=== PATIENT | male | born 1985 | race Caucasian/White ===

== ENCOUNTER 2020-06-13 06:48 | Outpatient (NON) | payer MEDICARE, SELFPAY ==
[2020-06-13 19:05] LABS: SARS-CoV-2 RNA PCR Negative
== END 2020-06-13 06:49 ==
PROVIDERS: Visit Provider Family Medicine
DX: Z20.828 Contact with and (suspected) exposure to other viral communicable diseases (principal)
CPT/HCPCS: 87635; C9803; U0003

== ENCOUNTER 2020-06-19 10:23 | Outpatient (CLI) | payer MEDICARE, SELFPAY ==
--- NOTE | ~2020-06-19 | XR_ITS ---
XR chest 2V DATE: 06/19/2020 10:55 INDICATION: Cough for 2 weeks TECHNIQUE: PA and lateral chest COMPARISON: None FINDINGS: Patchy infiltrate and/or atelectasis is suggested in both lower lobes. Borderline or increased heart size. No hilar or mediastinal enlargement. No pleural effusion or pulmo nary vascular congestion or pneumothorax is evident. No significant skeletal abnormality is noted. IMPRESSION: Mild infiltrate or atelectasis in the lower lobes Reviewed, dictated and finalized at location A.
== END 2020-06-19 10:24 | disposition home or self-care (01) ==
PROVIDERS: PCP Nurse Practitioner; Visit Provider Nurse Practitioner
DX: R05 Cough (principal); R91.8 Other nonspecific abnormal finding of lung field
CPT/HCPCS: 71046

== ENCOUNTER 2020-10-05 08:52 | Outpatient (CLI) | payer MEDICARE, SELFPAY ==
--- NOTE | 2020-10-05 16:39 | WPDPFTINT ---
PFT Interpretation This is a pulmonary function test with spirometry, plethysmography and diffusing capacity. The test was performed and results interpreted in accordance with the 2019 and 2005 ATS/ERS Task Force guidelines respectively using the Prudencio/Polsmitha reference equations. Of note the patient had difficulty with all of this testing. He was very short of breath and kept panting throughout the testing. Findings: Spirometry: There is decreased maximal expiratory airflow at all lung volumes with a flattened expiratory curve. The inspiratory flow tracing is normal. The FVC is 2.13 L, 40% predicted. The FEV1 is 1.48 L, 36% predicted. The FEV1: FVC ratio is 69%. Plethysmography: The total lung capacity is 7.32 L, 101% predicted. The functional residual capacity is 4.55, 178% predicted. The residual volume is 3.11, 152% predicted. Diffusing capacity the absolute diffusion capacity is 20.0, 49% predicted. The diffusing capacity corrected for alveolar volume is 5.83, 132% predicted. Impression: The patient had difficulty performing all maneuvers on this pulmonary function test. He was short of breath and panting throughout the testing. Caution should be used in making a diagnosis or initiating treatment based on these results. There is a flattening of the expiratory flow tracing that may be consistent with an inadequate expiratory phase or a variable intrathoracic obstruction. A variable intrathoracic obstruction can be seen with tracheal malacia, bronchogenic cyst, or a malignant tracheal lesion. There is an increase in the functional residual capacity and residual volume with a normal total lung capacity. This is an abnormal but nonspecific lung volume pattern. The absolute diffusing capacity is moderately decreased but normalizes when corrected for alveolar volume. There are no prior studies for comparison
== END 2020-10-05 08:53 | disposition home or self-care (01) ==
PROVIDERS: PCP Nurse Practitioner; Visit Provider Nurse Practitioner
DX: R06.02 Shortness of breath (principal); R05 Cough; R94.2 Abnormal results of pulmonary function studies
CPT/HCPCS: 94375; 94726; 94729

== ENCOUNTER 2020-10-22 14:56 | Outpatient (CLI) | payer MEDICARE, SELFPAY ==
--- NOTE | ~2020-10-22 | CT_ITS ---
EXAMINATION: CT chest abdomen w con DATE: 10/22/2020 15:51 INDICATION: Shortness of breath. Abnormal results of pulmonary function studies. TECHNIQUE: Computed tomography (CT) of the chest and abdomen was performed with 100 mL Omnipaque 350 intravenous contrast. Automated exposure control and iterative reconstruction technique were employed . The dose-length product was 1779.74 mGy-cm. COMPARISON: Chest 2 views 06/19/2020 FINDINGS: CHEST CT: The lungs demonstrate mild atelectasis. A calcified right lung nodule is consistent with ol d granulomatous disease. No pleural effusion. The heart size is normal. No pericardial effusion. Medi astinal lipomatosis is noted. There is a 3.0 x 1.8 cm hyperdense mass in right supraclavicular region . There is mild thoracic spondylosis. ABDOMEN CT: The liver, gallbladder, spleen, pancreas, adrenal glands, and kidneys are normal. There are no dilate d loops of bowel. 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 There a re no pathologically enlarged lymph nodes. There is no free intraperitoneal fluid. There is mild lumb ar spondylosis. IMPRESSION: 1. 3.0 x 1.8 cm hyperdense mass in right supraclavicular region. The differential diagnosis includes josé luis metastatic disease, Castleman disease, schwannoma, and venous malformation. Ultrasound-guided c ore needle biopsy is recommended. Reviewed, dictated and finalized at location A. 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 3.0 x 1.8 cm hyperdense mass in right supraclavicular region. The differenti al diagnosis includes josé luis metastatic disease, Castleman disease, schwannoma, and venous malformation. Ultrasound-guided core needle biopsy is recommended.
== END 2020-10-22 14:57 | disposition home or self-care (01) ==
PROVIDERS: PCP Nurse Practitioner; Visit Provider Nurse Practitioner
DX: R06.02 Shortness of breath (principal); R94.2 Abnormal results of pulmonary function studies
CPT/HCPCS: 71260; 74160; Q9967

== ENCOUNTER 2020-10-29 10:53 | Outpatient (CLI) | payer MEDICARE, SELFPAY | END 2020-10-29 10:54 | disposition home or self-care (01) | LOC: ANHCOVIDVC 10:54 | PROVIDERS: PCP Nurse Practitioner | DX: Z23 Encounter for immunization (principal) | CPT/HCPCS: 0001A; 91300 ==

== ENCOUNTER 2020-11-09 11:15 | Outpatient (CLI) | payer MEDICARE, SELFPAY ==
--- NOTE | ~2020-11-09 | CT_ITS ---
EXAMINATION:CT diagnostic chest w con DATE: 11/09/2020 14:24 INDICATION: Right supraclavicular mass. TECHNIQUE: Computed tomography (CT) of the chest was performed with 75 mL Omnipaque 350 intravenous c ontrast. Automated exposure control and iterative reconstruction technique were employed. The dose-le ngth product (DLP) was 738.17 mGy-cm. COMPARISON: Chest CT 10/22/2020 FINDINGS: The lungs demonstrate mild atelectasis. No pleural effusion. The heart size is normal. No p ericardial effusion. There is a varix in the right supraclavicular region. There are no pathologicall y enlarged lymph nodes. There is mild thoracic spondylosis. IMPRESSION: 1. Normal variant varix in the right subclavicular region correlating with the previously described m ass. The biopsy was canceled. Reviewed, dictated and finalized at location A. IMPRESSION: 1. Normal variant varix in the right subclavicular region correlating with the previously described mass. The biopsy was canceled.
--- NOTE | ~2020-11-09 | US_ITS ---
EXAMINATION: US soft tissue head and neck DATE: 11/09/2020 13:44 INDICATION: Right supraclavicular mass. TECHNIQUE: Multiple grayscale and Doppler ultrasound images of the right neck were obtained. COMPARISON: CT 10/22/2020 FINDINGS: There is no abnormal mass identified in the right supraclavicular region. IMPRESSION: 1. No abnormal mass identified in the right supraclavicular region. The scheduled biopsy will be swit ched to CT guidance. Reviewed, dictated and finalized at location A. IMPRESSION: 1. No abnormal mass identified in the right supraclavicular region. The schedul ed biopsy will be switched to CT guidance.
== END 2020-11-09 11:16 | disposition home or self-care (01) ==
PROVIDERS: PCP Nurse Practitioner; Visit Provider Nurse Practitioner
DX: R22.2 Localized swelling, mass and lump, trunk (principal)
CPT/HCPCS: 71260; 76536; Q9967

== ENCOUNTER 2020-11-19 10:56 | Outpatient (CLI) | payer MEDICARE, SELFPAY | END 2020-11-19 10:57 | disposition home or self-care (01) | LOC: ANHCOVIDVC 10:56 | PROVIDERS: PCP Nurse Practitioner | DX: Z23 Encounter for immunization (principal) | CPT/HCPCS: 0002A; 91300 ==

== ENCOUNTER → 2020-12-14 01:02 | Outpatient (CLI) | payer MEDICARE, SELFPAY ==
[2020-12-14 21:02] LABS: SARS-CoV-2 RNA PCR Negative
== END ==
PROVIDERS: PCP Nurse Practitioner; Visit Provider Internal Medicine Critical Care Medicine
DX: Z01.812 Encounter for preprocedural laboratory examination (principal); Z20.822 Contact with and (suspected) exposure to COVID-19
CPT/HCPCS: C9803; U0003; U0005

== ENCOUNTER 2020-12-17 09:05 | Outpatient (CLI) | payer MEDICARE, SELFPAY ==
--- NOTE | 2020-12-31 13:07 | WPDSLEEPSTUD ---
Sleep Study Date of Study: 12/17/20 Ordering Provider: Yakov Shankar MD Interpreting Physician: Courtney Singh MD Sleep Study Type: Polysomnogram Height: 1.82 m Weight: 172.365 kg Body Mass Index: 52.2 Neck Circumference (inches): 20 Coleridge: 11 Reason for Sleep Study Hypersomnia Sleep History Neymar Howard is a 35 year old man with a history of obstructive sleep apnea in the past with difficulty tolerating CPAP, so he quit using it. He now presents feeling very fatigued and exhausted, is willing to re- evaluate his sleep and wants to try PAP therapy. His sleep problems have been present for years. He has difficulty falling asleep, he wakes up during the night and he has a difficult time waking in the morning. He is excessively sleepy during the day. Family history is unknown as he is adopted. He does not awaken from sleep feeling short of breath. He does not awaken at night with heartburn, belching or coughing. He constantly snores. He does not snore loudly enough that others complain. He occasionally has trouble sleeping with a cold. He does not wake up gasping for breath during the night. He does not have breathing problems at night observed by others. He rarely sweats excessively night. He does not notice his heart pounding or beating irregularly at night. He constantly falls asleep during the day although not involuntarily or while driving. He does not have loss of muscle tone was strong emotion. He occasionally has daytime difficulties due to excessive sleepiness. He does not feel paralyzed on waking or falling asleep. He rarely has vivid dreamlike scenes upon awakening or falling asleep. He does not feel afraid to go to sleep. He occasionally has nightmares. He occasionally remembers his dreams. On occasion he has racing thoughts. He constantly feels sad, depressed and anxious. He occasionally has muscular tension. He frequently notices parts of his body jerking. He rarely kicks at night. He seldom has crawling or aching feelings in his legs at night. He constantly has leg pain during the night. He does not have morning jaw pain. Occasionally grind his teeth during sleep. He constantly is bothered by pain during the day, awakened by pain at night, wakes up feeling stiff in the morning with sore or achy muscles and pain in the neck and spine. He rarely has morning headaches. He always has excessive daytime sleepiness Normal bedtime 9:00 p.m. taking Trazodone at night to initiate sleep.. He usually takes just minutes to fall to sleep but sometimes it takes longer. He may wake 2 or 3 times at night. Sometimes he is able to return to sleep quickly and sometimes it takes up to 30 minutes. While awake he goes to the bathroom and get a drink of water. His wake time depends on what his schedule is. His weekend schedule is the same. He estimates getting between 4 and 6 hours of sleep at night. He takes naps in the afternoon or evening. A short nap is not refreshing. He is usually drowsy in the morning. He feels better in the morning compared other times of day. Habits: Caffeine 1-2 per day. Alcohol 1 per day. [facility] Past Medical History Medical History (Updated 12/31/20 @ 13:26 by Courtney Singh MD) ADHD (attention deficit hyperactivity disorder) Anxiety Asperger's disorder Depression Hyperlipidemia Obstructive sleep apnea Seasonal allergies Sleep apnea Family History Family History Mother Family history of obesity Family history of diabetes mellitus in first degree relative Other Family history of cardiovascular disease Social History Social History (Updated 12/31/20 @ 13:21 by Courtney Singh MD) Social History: His sleep questionnaire November 2020 indicates that he is adopted. Smoking status: Never smoker Alcohol intake: current Substance use: never Substance use type: does not use Medications Home Medica
[2020-12-31 13:35] VITALS: BMI 52.2
== END 2020-12-17 09:06 | disposition home or self-care (01) ==
LOC: ANHCSM 09:06
PROVIDERS: PCP Nurse Practitioner; Visit Provider Internal Medicine Pulmonary Disease
DX: G47.33 Obstructive sleep apnea (adult) (pediatric) (principal); G47.10 Hypersomnia, unspecified; E66.9 Obesity, unspecified; Z68.43 Body mass index [BMI] 50.0-59.9, adult
CPT/HCPCS: 95810

== ENCOUNTER 2020-12-31 09:16 | Outpatient (CLI) | payer MEDICARE, SELFPAY | END 2020-12-31 09:17 | disposition home or self-care (01) | PROVIDERS: PCP Nurse Practitioner; Visit Provider Nurse Practitioner | DX: E53.8 Deficiency of other specified B group vitamins (principal) | CPT/HCPCS: 36415; 82607 ==

== ENCOUNTER 2021-11-11 07:48 | Outpatient (CLI) | payer MEDICARE, SELFPAY ==
[2021-11-11 08:27] LABS: Basophils Absolute Auto 0.1 K/mm3 (0.0-0.1); Basophils Percent Auto 0.9 % (0.2-1.2); Eosinophils Absolute Auto 0.3 K/mm3 (0-0.3); Eosinophils Percent Auto 3.5 % (0-4.4); Hematocrit 40.2 % (42.0-52.0); Hemoglobin 12.2 g/dL (14.0-18.0); Immature Granulocyte Absolute 0.08 K/mm3 (0.00-0.031); Immature Granulocyte Percent A 1.1 % (0-0.5); Lymphocytes Absolute Auto 1.28 K/mm3 (0.9-3.2); Mean Corpuscular HGB Conc 30.3 g/dl (32-36); Mean Corpuscular Hemoglobin 24.9 pg (26-34); Monocytes Absolute Auto 0.7 K/mm3 (0.1-0.6); Monocytes Percent Auto 8.9 % (2.6-8.5); Neutrophils Absolute Auto 5.2 K/mm3 (1.3-6.7); Neutrophils Percent Auto 68.6 % (45.5-73.1); Platelet Count Result 270 k/mm3 (150-375); Red Cell Distribution Width 15.4 % (11.5-14.5); White Blood Count 7.5 K/mm3 (4.5-10.0)
[2021-11-11 08:38] LABS: Alanine Aminotransferase 28 U/L (4-50); Albumin Level 3.9 g/dL (3.5-5.1); Alkaline Phosphatase 87 U/L (38-126); Anion Gap 4 mmol/L (8-16); Aspartate Amino Transferase 27 U/L (17-59); Bilirubin,Total 0.2 mg/dL (0.2-1.3); Blood Urea Nitrogen 13 mg/dL (9-20); Calcium 8.8 mg/dL (8.4-10.2); Carbon Dioxide 31 mmol/L (22-30); Chloride 105 mmol/L (98-107); Cholesterol 149 mg/dL (0-200); Estimated Glomerular Filt Rate > 60; Glucose 85 mg/dL (65-110); HDL Direct 26 mg/dL; Sodium 140 mmol/L (137-145); Triglycerides 197 mg/dL (<150)
[2021-11-11 08:49] LABS: LDL Cholesterol Direct 85 mg/dL
[2021-11-11 09:01] LABS: Vitamin D 25 Hydroxy 17.3 ng/mL
[2021-11-11 10:02] LABS: Hemoglobin A1C 5.2 % (<5.7)
[2021-11-11 17:38] LABS: Iron 49 ug/dL (49-181)
== END 2021-11-11 07:49 | disposition home or self-care (01) ==
PROVIDERS: PCP Nurse Practitioner; Visit Provider Nurse Practitioner
DX: R73.9 Hyperglycemia, unspecified (principal); E53.8 Deficiency of other specified B group vitamins; E78.5 Hyperlipidemia, unspecified; E03.9 Hypothyroidism, unspecified; E55.9 Vitamin D deficiency, unspecified; R53.83 Other fatigue; D64.9 Anemia, unspecified
CPT/HCPCS: 36415; 80053; 80061; 82306; 82607; 82728; 83036; 83540; 84443; 85025

== ENCOUNTER 2022-01-28 10:16 | Outpatient (CLI) | payer MEDICARE, SELFPAY ==
--- NOTE | ~2022-01-28 | XR_ITS ---
XR ribs BI 3V w CXR 2V DATE: 01/28/2022 10:54 INDICATION: Covid chest pain TECHNIQUE: PA and lateral chest. Bilateral rib views. COMPARISON: 11/09/2020 CT chest 06/19/2020 chest 2 views FINDINGS: Heart size is within normal range. No pulmonary infiltrate or consolidation, pulmonary vas cular congestion or pleural effusion or pneumothorax is detected. No rib fracture or bone destructio n is detected. IMPRESSION: No significant abnormality Reviewed, dictated and finalized at location A. IMPRESSION: No significant abnormality
== END 2022-01-28 10:17 | disposition home or self-care (01) ==
LOC: ANHIMG 10:28
PROVIDERS: PCP Nurse Practitioner; Visit Provider Nurse Practitioner Family
DX: R07.89 Other chest pain (principal)
CPT/HCPCS: 71046; 71110

== ENCOUNTER 2022-02-07 09:57 | Outpatient (CLI) | payer MEDICARE, SELFPAY ==
--- NOTE | 2022-02-07 11:57 | WPDPFTINT ---
PFT Procedure Performed PFT Procedure Performed Spirometry with Pre/Post Bronchodilator Plethysmography (Lung Vol) Diffusing Cap (DLCO) Flow Vol Loop PFT Interpretation This is a pulmonary function test with pre and post-bronchodilator spirometry, plethysmography and diffusing capacity. The test was performed and results interpreted in accordance with the 2019 and 2005 ATS/ERS Task Force guidelines respectively using the Global Lung Function Initiative-2012 reference equations. Patient demonstrated good effort and cooperation. Reproducibility criteria were met. The quality of the pre bronchodilator spirometry maneuver was Grade B and post bronchodilator spirometry maneuver was Grade B. Of note the patient could only produce 1 acceptable DLCO maneuver as he e was unable to perform the breath hold. Findings: Spirometry: The contour the inspiratory and expiratory flow tracing are normal. Pre bronchodilator FVC is 2.57 L, 47% predicted. The pre bronchodilator FEV1 is 2.16 L, 49% predicted. The pre bronchodilator FEV1: FVC ratio was 84%. The post bronchodilator FVC is 3.03 L, representing an 18% increase. The post bronchodilator FEV1 is 2.61 L, representing a 21% increase. The post bronchodilator FEV1: FVC ratio is 86%. Plethysmography: The total lung capacity is 7.51 L, 106% predicted. The functional residual capacity is 5.55 L, 156% predicted. The residual volume is 4.95 L, 267% predicted. Diffusing capacity: The diffusing capacity unadjusted for hemoglobin and carboxyhemoglobin is 28.3, 84% predicted. The diffusing capacity adjusted for alveolar volume is 6.74, 139% predicted. In comparison to prior pulmonary function testing on 10/05/2020 in which only pre bronchodilator spirometry was performed the flattening of the expiratory curve is no longer present. The pre bronchodilator FVC has increased from 2.13 L to 2.57 L. The pre bronchodilator FEV1 has increased from 1.48 L to 2.16 L. the total lung capacity is unchanged from 7.32 L to 7.51 L. The functional residual capacity has increased from 4.55 L to 5.55 L. The residual volume has increased from 3.11 L to 4.95 L. The diffusing capacity unadjusted for hemoglobin and carboxyhemoglobin has increased from 20.0 to 28.3. The diffusing capacity adjusted for alveolar volume has increased from 5.83 to 6.74 Impression: The spirometry is normal without evidence of an obstructive abnormality. The total lung capacity is normal without evidence of a restrictive abnormality. The FVC and FEV1 are severely decreased without an obstructive or restrictive abnormality. This is an abnormal but nonspecific finding. There is significant improvement after inhaling a single dose of albuterol. The residual volume is increased consistent with air trapping. The functional residual capacity is increased consistent with hyperinflation. The diffusing capacity unadjusted for hemoglobin and carboxyhemoglobin is normal and is increased when adjusted for alveolar volume. In comparison to prior pulmonary function testing on 10/05/2020 the contour the expiratory flow tracing is now normal. There has been a greater than anticipated time dependent increase in the FVC, FEV1, functional residual capacity, residual volume, and the diffusing capacity with no change in the total lung capacity. Clinical correlation is recommended
== END 2022-02-07 09:58 | disposition home or self-care (01) ==
PROVIDERS: PCP Nurse Practitioner; Visit Provider Internal Medicine Pulmonary Disease
DX: R06.00 Dyspnea, unspecified (principal)
CPT/HCPCS: 94060; 94726; 94729

== ENCOUNTER 2022-05-08 07:03 | Outpatient (CLI) | payer MEDICARE, SELFPAY ==
[2022-05-08 08:29] LABS: Basophils Absolute Auto 0.1 K/mm3 (0.0-0.1); Basophils Percent Auto 1.1 % (0.2-1.2); Eosinophils Absolute Auto 0.3 K/mm3 (0-0.3); Eosinophils Percent Auto 4.1 % (0-4.4); Hematocrit 40.5 % (42.0-52.0); Immature Granulocyte Absolute 0.04 K/mm3 (0.00-0.031); Immature Granulocyte Percent A 0.7 % (0-0.5); Lymphocytes Absolute Auto 1.25 K/mm3 (0.9-3.2); Lymphocytes Percent Auto 20.4 % (18.3-44.2); Mean Corpuscular HGB Conc 32.1 g/dl (32-36); Mean Corpuscular Hemoglobin 26.2 pg (26-34); Mean Corpuscular Volume 81.7 fl (80-100); Mean Platelet Volume 9.3 fl (7.4-10.4); Monocytes Absolute Auto 0.5 K/mm3 (0.1-0.6); Neutrophils Percent Auto 65.7 % (45.5-73.1); Platelet Count Result 253 k/mm3 (150-375); Red Blood Count 4.96 M/mm3 (4.6-6.20); Red Cell Distribution Width 14.6 % (11.5-14.5); White Blood Count 6.1 K/mm3 (4.5-10.0)
[2022-05-08 08:40] LABS: Alanine Aminotransferase 38 U/L (6-50); Albumin Level 4.1 g/dL (3.5-5.1); Alkaline Phosphatase 76 U/L (38-126); Amylase 67 U/L (30-110); Anion Gap 12 mmol/L (8-16); Aspartate Amino Transferase 31 U/L (17-59); Bilirubin,Total 0.2 mg/dL (0.2-1.3); Blood Urea Nitrogen 16 mg/dL (9-20); Calcium 8.4 mg/dL (8.4-10.2); Carbon Dioxide 25 mmol/L (22-30); Chloride 103 mmol/L (98-107); Cholesterol 158 mg/dL (0-200); Estimated Glomerular Filt Rate > 60; Glucose 100 mg/dL (65-110); HDL Direct 29 mg/dL; Lipase 321 U/L (23-300); Potassium 3.8 mmol/L (3.4-5.0); Sodium 140 mmol/L (137-145); Triglycerides 243 mg/dL (<150)
[2022-05-08 08:51] LABS: LDL Cholesterol Direct 86 mg/dL
[2022-05-08 08:55] LABS: Vitamin D 25 Hydroxy 39.3 ng/mL
== END 2022-05-08 07:04 | disposition home or self-care (01) ==
LOC: ANHLAB 07:04
PROVIDERS: PCP Family Medicine; Visit Provider Nurse Practitioner
DX: R10.9 Unspecified abdominal pain (principal); E78.5 Hyperlipidemia, unspecified; E55.9 Vitamin D deficiency, unspecified; R39.9 Unspecified symptoms and signs involving the genitourinary system
CPT/HCPCS: 36415; 80053; 80061; 82150; 82306; 83690; 85025; 87086

== ENCOUNTER 2022-06-05 08:19 | Outpatient (CLI) | payer MEDICARE, SELFPAY ==
--- NOTE | ~2022-06-05 | CT_ITS ---
EXAMINATION: CT abdomen pelvis w con INDICATION: Diffuse abdominal pain TECHNIQUE: Computed tomographic images of the abdomen and pelvis were obtained after the administrati on of 100 cc of Omnipaque 350 intravenous contrast. The dose-length product (DLP) was 1921.66 mGy-cm. Automated exposure control and iterative reconstruction technique were employed. COMPARISON: 10/22/2020 FINDINGS: Minimal dependent atelectasis is present in the lung bases. The heart size is normal. Small nodules of the visualized lung bases likely reflect old granulomatous disease. The liver is diffusel y low in attenuation when compared with the spleen, consistent with hepatic steatosis. The spleen, pa ncreas, gallbladder,, and adrenal glands are normal. The kidneys are unremarkable. No pathologically enlarged abdominal or pelvic lymph nodes are identified. There is no free intraperitoneal gas or evid ence of bowel obstruction. The appendix is normal. There is an umbilical hernia containing fat. There is mild lumbar spondylosis. IMPRESSION: 1. No CT correlate for the patient's symptoms. Reviewed, dictated and finalized at location F.
[2022-06-05 09:12] LABS: Hematocrit 40.4 % (42.0-52.0); Hemoglobin 12.4 g/dL (14.0-18.0); Mean Corpuscular HGB Conc 30.7 g/dl (32-36); Mean Corpuscular Volume 84.7 fl (80-100); Mean Platelet Volume 8.9 fl (7.4-10.4); Platelet Count Result 242 k/mm3 (150-375); Red Blood Count 4.77 M/mm3 (4.6-6.20); Red Cell Distribution Width 15.3 % (11.5-14.5); White Blood Count 7.1 K/mm3 (4.5-10.0)
[2022-06-05 09:25] LABS: Alanine Aminotransferase 42 U/L (6-50); Albumin Level 3.9 g/dL (3.5-5.1); Alkaline Phosphatase 84 U/L (38-126); Amylase 51 U/L (30-110); Anion Gap 8 mmol/L (8-16); Aspartate Amino Transferase 32 U/L (17-59); Bilirubin,Total 0.3 mg/dL (0.2-1.3); Blood Urea Nitrogen 10 mg/dL (9-20); Calcium 8.7 mg/dL (8.4-10.2); Carbon Dioxide 27 mmol/L (22-30); Chloride 106 mmol/L (98-107); Estimated Glomerular Filt Rate > 60; Glucose 84 mg/dL (65-110); Lipase 211 U/L (23-300); Potassium 4.2 mmol/L (3.4-5.0); Sodium 141 mmol/L (137-145)
[2022-06-05 09:35] LABS: Iron 48 ug/dL (49-181)
[2022-06-05 09:44] LABS: Percent Iron Saturation 11 % (20-50)
[2022-06-09 11:24] LABS: Tissue Transglutaminase IgA Ab <1.0 U/mL (<15.0)
[2022-06-10 08:39] LABS: Tissue Transglutaminase IgG Ab <1.0 U/mL (<15.0)
[2022-06-12 22:02] LABS: Calprotectin, Stool 38 mcg/g
== END 2022-06-05 08:20 | disposition home or self-care (01) ==
LOC: ANHIMG 08:24
PROVIDERS: PCP Nurse Practitioner; Visit Provider Nurse Practitioner Family
DX: R10.9 Unspecified abdominal pain (principal); R53.83 Other fatigue; D64.9 Anemia, unspecified; K42.9 Umbilical hernia without obstruction or gangrene; M47.816 Spondylosis without myelopathy or radiculopathy, lumbar region
CPT/HCPCS: 36415; 74177; 80053; 82150; 82607; 82728; 82746; 83516; 83540; 83550; 83690; 83993; 85027; 86140; Q9967

== ENCOUNTER 2022-08-13 08:00 | Outpatient (RCR) | payer MEDICARE, SELFPAY ==
--- NOTE | 2022-06-02 14:15 | PTOPEVAL1 ---
Assessment and note entered by Shalonda Paredes, PT, DPT Evaluation Information Assessment Status Evaluation Diagnosis back pain Onset months and year Subjective Information Pt states has has back pain for one hundred million years . Pt states 3 years ago he picked up a vending machine and hurt his back. He states he went through therapy then without any benefits. He states standing or walking for too long bother him. He states he takes two Advil at least two times a day, with a little bit of relief. He states he has a pain on his inside part that he needs to see a GI doctor for. He reports numbness in his R LE. 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 Reported Pain Level Pain Score 5: Self Report Assessment PT Clinical Summary Samir is an inactive and obese 37 y/o male who presents to therapy today for his initial evaluation with a diagnosis of back pain. Today he reports constant pain in his low back and upper back. He demonstrates decreased active spinal motions is all directions. He has postural abnormalities with increased lumbar lordosis and an increased thoracic kyphosis. He demonstrates poor body mechanics throughout the assessment this date. Skilled physical therapy services are indicated to address the deficits noted above, to improve spinal mobility, to improve body mechanics , and to manage pain. Modified Oswestry: 29/50, 58% disability. Plan of Care Interventions Electrical Stimulation,Hot Pack/Cold Pack,Manual Therapy,Neuro Re-education,Patient/Caregiver Educati,Therapeutic Activities,Therapeutic Exercise PT Services Indicated Yes Treatment Frequency and 2x/wk for 4 wks Duration These treatments will address the objective and functional deficits as defined above. The patient will be advanced safely and appropriately in order for the patient to progress towards his/her prior level of function. Additional exercises will be introduced and as well as a comprehensive home exercise program upon discharge, if needed, ?to ensure carryover of functional gains achieved in the clinic. This treatment plan has been reviewed and agreement upon by the patient.
--- NOTE | 2022-07-02 08:54 | PTOPPROG ---
Assessment and note entered by Shalonda Paredes, PT, DPT Evaluation Information Assessment Status Progress Diagnosis back pain Onset months and year Subjective Information Pt states he is feeling sore today as he worked the [employer] yesterday. He states he also trip and fell and was unable to catch himself, he fell to the floor. Pt states he continues to have good days and bad days but his bad days are getting better. Pt reports 30-40% improvement in overall symptoms. Assessment PT Clinical Summary Samir presents to therapy today for his progress report following 7 visits of skilled therapy. Today he demonstrates continued tension and tenderness to palpation throughout his lumbar and thoracic paraspinals. He demonstrates good LE strength but has poor mobility and body awareness with functional motion. Continuation of skilled physical therapy services, and the addition of aquatic therapy are indicated to improve spinal mobility, to decreased pain, to improve mobility, and to improve functional independance. Plan of Care Interventions Aquatic Therapy,Electrical Stimulation,Gait Training,Hot Pack/Cold Pack,Manual Therapy,Neuro Re-education,Patient/Caregiver Educati,Therapeutic Activities,Therapeutic Exercise PT Services Indicated Yes Treatment Frequency and 2x/wk for 4 wks Duration These treatments will address the objective and functional deficits as defined above. The patient will be advanced safely and appropriately in order for the patient to progress towards his/her prior level of function. Additional exercises will be introduced and as well as a comprehensive home exercise program upon discharge, if needed, ?to ensure carryover of functional gains achieved in the clinic. This treatment plan has been reviewed and agreement upon by the patient.
--- NOTE | 2022-07-31 08:52 | PCPTNOTE ---
Patient did not show up for scheduled appointment this date. Called and had to leave a message.
--- NOTE | 2022-08-06 08:44 | PCPTNOTE ---
Patient did not show up for scheduled appointment this date. Called patient and left message to call javascript front end developer to reschedule or discharge from therapy based on this being last visit scheduled.
--- NOTE | 2022-08-13 13:42 | PTOPREEVAL ---
Assessment and note entered by Anirudh Enamorado, PT Evaluation Information Assessment Status Re-evaluation Diagnosis back pain Onset Chronic Subjective Information Patient reports himself and his mother are really noticing that he is moving around better and able to lift objects without as much pain and taking longer for the pain to start bothering him. He does report still having radiating symptoms. Reported Pain Level Pain Score 5: Self Report Additional Pain Score Comments Reports doing a lot better than where he was in the pain areas. Assessment PT Clinical Summary Samir is a 37 year old male coming into the clinic for low and mid back pain exacerbated by lifting objects at his job. He started coming to therapy on June 02, 2022 and has attended 12 appointments. He has shown improved strength and decreased symptoms since starting aquatic therapy. I think it would be prudent to continue some aquatic therapy, but also do physical therapy focused on body mechanics and more core strengthening. Modalities as needed for pain Plan of Care Interventions Aquatic Therapy,Electrical Stimulation,Gait Training,Hot Pack/Cold Pack,Manual Therapy,Neuro Re-education,Patient/Caregiver Education,Therapeutic Activities,Therapeutic Exercise,Ultrasound PT Services Indicated Yes Treatment Frequency and 1-2x/wk for 4 weeks Duration These treatments will address the objective and functional deficits as defined above. The patient will be advanced safely and appropriately in order for the patient to progress towards his/her prior level of function. Additional exercises will be introduced and as well as a comprehensive home exercise program upon discharge, if needed, ?to ensure carryover of functional gains achieved in the clinic. This treatment plan has been reviewed and agreement upon by the patient.
--- NOTE | 2022-10-07 08:37 | PCPTNOTE ---
Admitting Provider: Attending Provider: Poly Copeland NP Patient:Samir Howard Date of :1985 Patient has not returned for any further treatments since 08/13/2022, therefore (he/she) will be discharged at this time. Patient?s initial visit was on 06/02/2022 08:00 and (he/she) had a total of ___12 visits. The goals have been partially met. Thank you [facility] this [facility] to [facility]. Please review, sign, date and return this discharge summary PANFILO. I have been updated about the patient's current status and I agree with discharge from the above service at this time. Referring Physician Date
== END 2022-08-31 23:59 | disposition home or self-care (01) ==
LOC: ANHPT 08:00
PROVIDERS: PCP Family Medicine; Visit Provider Nurse Practitioner
DX: M54.6 Pain in thoracic spine (principal)
CPT/HCPCS: 97014; 97110; 97112; 97113; 97140; 97161; 97530; 99199; G0283

== ENCOUNTER 2022-10-28 20:07 | Outpatient (NON) | payer MEDICARE, SELFPAY | END 2022-10-28 20:08 | disposition home or self-care (01) | LOC: ANHLAB 20:08 | PROVIDERS: PCP Family Medicine; Visit Provider Nurse Practitioner | DX: T14.8XXA Other injury of unspecified body region, initial encounter (principal) | CPT/HCPCS: 87070; 87205 ==

== ENCOUNTER 2022-11-04 09:11 | Outpatient (CLI) | payer MEDICARE, SELFPAY ==
[2022-11-04 19:25] LABS: Basophils Absolute Auto 0.1 K/mm3 (0.0-0.1); Basophils Percent Auto 1.2 % (0.2-1.2); Eosinophils Absolute Auto 0.2 K/mm3 (0-0.3); Eosinophils Percent Auto 3.7 % (0-4.4); Hematocrit 42.2 % (42.0-52.0); Hemoglobin 12.7 g/dL (14.0-18.0); Immature Granulocyte Absolute 0.02 K/mm3 (0.00-0.031); Immature Granulocyte Percent A 0.4 % (0-0.5); Lymphocytes Absolute Auto 1.02 K/mm3 (0.9-3.2); Mean Corpuscular HGB Conc 30.1 g/dl (32-36); Mean Corpuscular Hemoglobin 25.9 pg (26-34); Mean Corpuscular Volume 85.9 fl (80-100); Mean Platelet Volume 9.1 fl (7.4-10.4); Monocytes Absolute Auto 0.4 K/mm3 (0.1-0.6); Monocytes Percent Auto 8.5 % (2.6-8.5); Neutrophils Absolute Auto 3.2 K/mm3 (1.3-6.7); Neutrophils Percent Auto 65.2 % (45.5-73.1); Platelet Count Result 245 k/mm3 (150-375); Red Blood Count 4.91 M/mm3 (4.6-6.20); Red Cell Distribution Width 16.6 % (11.5-14.5); White Blood Count 4.9 K/mm3 (4.5-10.0)
[2022-11-04 19:34] LABS: Alanine Aminotransferase 30 U/L (6-50); Alkaline Phosphatase 79 U/L (38-126); Anion Gap 2 mmol/L (8-16); Aspartate Amino Transferase 38 U/L (17-59); Bilirubin,Total 0.4 mg/dL (0.2-1.3); Blood Urea Nitrogen 14 mg/dL (9-20); Calcium 8.8 mg/dL (8.4-10.2); Carbon Dioxide 29 mmol/L (22-30); Chloride 105 mmol/L (98-107); Cholesterol 161 mg/dL (0-200); Estimated Glomerular Filt Rate > 60; Glucose 76 mg/dL (65-110); HDL Direct 29 mg/dL; Lipase 299 U/L (23-300); Potassium 4.3 mmol/L (3.4-5.0); Sodium 136 mmol/L (137-145); Triglycerides 176 mg/dL (<150)
[2022-11-04 19:48] LABS: LDL Cholesterol Direct 91 mg/dL
[2022-11-04 19:55] LABS: Iron 36 ug/dL (49-181)
[2022-11-04 20:06] LABS: Percent Iron Saturation 8 % (20-50)
== END 2022-11-04 09:12 | disposition home or self-care (01) ==
PROVIDERS: PCP Clinical Nurse Specialist; Visit Provider Nurse Practitioner
DX: R10.9 Unspecified abdominal pain (principal); D64.9 Anemia, unspecified; E55.9 Vitamin D deficiency, unspecified; E78.5 Hyperlipidemia, unspecified
CPT/HCPCS: 36415; 80053; 80061; 82306; 82728; 83540; 83550; 83690; 85025

== ENCOUNTER → 2022-12-23 10:52 | Outpatient (CLI) | payer MEDICARE, SELFPAY ==
--- NOTE | ~2022-12-23 | XR_ITS ---
EXAMINATION: XR chest 2V DATE: 12/23/2022 11:03 INDICATION: Shortness of breath TECHNIQUE: PA and lateral views of the chest were obtained. COMPARISON: Chest radiograph dated 01/28/22 FINDINGS: Evaluation limited mildly on the PA projection and significantly on the lateral projection by patient body habitus and underpenetration. No focal airspace opacities, pulmonary edema, pleural effusion or pneumothorax. Heart size is normal with small left pericardial fat pad. Mild thoracic spondylosis. IMPRESSION: 1. No acute cardiopulmonary disease. Reviewed, dictated and finalized at location L.
== END ==
PROVIDERS: PCP Clinical Nurse Specialist; Visit Provider Nurse Practitioner
DX: R06.02 Shortness of breath (principal)
CPT/HCPCS: 71046

== ENCOUNTER 2023-02-27 06:58 | Outpatient (RCR) | payer OTHER, MEDICARE, SELFPAY ==
[2023-02-27 07:20] VITALS: BMI 52.3
== END 2023-05-20 07:48 | disposition home or self-care (01) ==
LOC: ANHWOC 06:58
PROVIDERS: PCP Internal Medicine; Visit Provider Nurse Practitioner
DX: S31.109D Unspecified open wound of abdominal wall, unspecified quadrant without penetration into peritoneal cavity, subsequent encounter (principal); L08.9 Local infection of the skin and subcutaneous tissue, unspecified
CPT/HCPCS: 99212; A9270; G0463

== ENCOUNTER 2023-06-17 15:30 | Outpatient (RCR) | payer OTHER, MEDICARE, SELFPAY ==
--- NOTE | 2023-05-19 16:54 | OPREHPOC ---
Outpatient Therapy Plan of Care This is a Multidisciplinary Plan of Care that may contain components documented by all disciplines (PT, OT, and ST.) PT Problem 1 PT Problem #1 Knowledge Deficit PT Goal 1 Goal Pt to be IND with issued HEP Target Visit 8 PT Problem 2 PT Problem #2 Pain PT Goal 1 Goal Pt to report back pain no greater than 3/10 in the last week Target Visit 8 PT Goal 2 Goal Pt to report 75% improvement in overall symptoms. Target Visit 8 PT Problem 3 PT Problem #3 Impaired Range of Motion PT Goal 1 Goal Pt to report no increase in pain with active lumbar ROM. Target Visit 8 PT Problem 4 PT Problem #4 Impaired Gait PT Goal 1 Goal Pt to improve his 2 min walk distance from 163ft to 220ft. Target Visit 8 PT Problem 5 PT Problem #5 Impaired Strength PT Goal 1 Goal Pt to improve his 5xSTS time from 23s to 15s. Target Visit 8 PT Goal 2 Goal Pt to demonstrate a 20s inclined plank to demonstrate improved core strength Target Visit 8
--- NOTE | 2023-05-19 16:54 | PTOPEVAL1 ---
Assessment and note entered by Shalonda Paredes, PT, DPT Evaluation Information Assessment Status Evaluation Diagnosis low back pain Subjective Information Pt states he just has pain, all the time its just pain. Pt states he is having aurea elbow, low back pain, and RLE neuropathy. Pt initially reports his pain as a 10/10, when looking at the Steven and Griffith pain scale reports this as a 3/10. Pts states he is still walking in a pool 3x/wk, but has not been compliant with his prior exercises. Pt states placing his foot on the ground in a sitting position increases his pain. Reported Pain Level Pain Score 3: Self Report Assessment PT Clinical Summary Samir presents to therapy today for his initial evaluation with a diagnosis of low back pain. Today he demonstrates decreased lumbar and thoracic ROM is all direction, reportedly limited by pain. He ambulates with a decreased gait speed, has decreased walking tolerance, and ambulated with gait deviations. He reports high levels of pain that limit his mobility. Skilled therapy services are indicated to manage pain, improve ROM , improve function, and to limit impairment. Plan of Care Interventions Electrical Stimulation,Gait Training,Hot Pack/Cold Pack,Manual Therapy,Neuro Re-education,Patient/ Caregiver Educati,Therapeutic Activities, Therapeutic Exercise PT Services Indicated Yes Treatment Frequency and 2x/wk for 8 visits Duration These treatments will address the objective and functional deficits as defined above. The patient will be advanced safely and appropriately in order for the patient to progress towards his/her prior level of function. Additional exercises will be introduced and as well as a comprehensive home exercise program upon discharge, if needed, ?to ensure carryover of functional gains achieved in the clinic. This treatment plan has been reviewed and agreement upon by the patient.
--- NOTE | 2023-06-08 16:23 | PCPTNOTE ---
Patient called & cancelled scheduled appointment this date due to having another appointment at this time.
--- NOTE | 2023-06-17 16:46 | PTOPDC ---
Assessment and note entered by Shalonda Paredes, PT, DPT Evaluation Information Assessment Status Discharge Diagnosis low back pain Subjective Information Pt states he hurts today, a lot. Pt states his back is slowly starting to do better, he states some days are still really bad and some days are better. He states he has been doing some exercises at home to help with his pain. He states he has has learned how to clean better for work, but because of his size and the small space in the bathroom he cannot put this knowledge into place. He also states both of his arms hurt and have increase in the last month. He states he was up twice last night d/t back pain and has gotten up multiple times in the last week. Pt reports his current pain as a 7/10 and 12/10 at the worse. Reported Pain Level Pain Score 7: Self Report Assessment PT Clinical Summary Samir presents to therapy today for his progress report following 5 visits of therapy to treat his diagnosis of low back pain. Today he demonstrates no improvement in gait speed, pain reports, active lumbar ROM, functional LE strength, or body awareness. He has made no progress towards his goals. He will be discharged at this time d/t poor therapy. Plan of Care PT Services Indicated No
== END 2023-06-18 09:00 | disposition home or self-care (01) ==
LOC: ANHGOSHPT 15:30
PROVIDERS: PCP Internal Medicine; Visit Provider Clinical Nurse Specialist
DX: M54.50 Low back pain, unspecified (principal); G89.29 Other chronic pain
CPT/HCPCS: 97014; 97110; 97140; 97161; 97530; 99199; G0283

== ENCOUNTER 2024-02-05 09:20 | Emergency (ER) | payer OTHER, SELFPAY ==
[2024-02-05 09:34] VITALS: BP 167/91; PULSE 76; RESP 24; TEMP 36.5; O2SAT 98
--- NOTE | 2024-02-05 09:34 | ED.ABDPAIN ---
HPI - Abdominal Pain General Chief Complaint: Abdominal Pain Stated Complaint: Side/Back Pain Time Seen by Provider: 02/05/24 09:40 Source: patient Mode of arrival: ambulatory Limitations: no limitations History of Present Illness HPI narrative: Samir is a 39-year-old male patient presenting to the clinic today with complaints of right-sided flank pain and right lower quadrant abdominal pain. Reports his symptoms started on Thursday. He feels as though when he is urinating it is fluttering in his abdomen. States pain is sharp and constant. Has had some chills/hot flashes. Rates pain 7/10 currently. Denies any fever, nausea, vomiting, or diarrhea. Last BM was today. Had 2 large BMs yesterday and 1 large BM today. No blood in stools. Related Data Home Medications Medication Instructions Recorded Confirmed buspirone 5 mg tablet 5 mg PO DAILY Anxiety 03/26/23 01/08/24 Allergies Allergy/AdvReac Type Severity Reaction Status Date / Time Sulfa (Sulfonamide Allergy Unknown Rash Verified 01/08/24 09:02 Antibiotics) Review of Systems Review of Systems: Pertinent positives per HPI. Patient denies any fever, rash, headache, visual changes, dizziness, cough, runny nose, sore throat, shortness of breath, chest pain, palpitations, nausea, vomiting, diarrhea, constipation. [facility] Past Medical History Medical History Abdominal pain Abnormal PFTs (pulmonary function tests) ADHD (attention deficit hyperactivity disorder) Anxiety Asperger's disorder Depression History of 2019 novel coronavirus disease (COVID-19) Hyperlipidemia Iliac artery aneurysm, right Obstructive sleep apnea Seasonal allergies Supraclavicular mass Family History Family History Mother Family history of obesity Family history of diabetes mellitus in first degree relative Other Family history of cardiovascular disease Social History Social History Social History: His sleep questionnaire November 2020 indicates that he is adopted. Caffeine-tea Smoking status: Never smoker Alcohol intake: current Alcohol use details: occasionally Substance use: never Substance use type: does not use Do You Feel Safe in your Home?: Yes Lack of Transportation: No Lack of Food: Never True Current Housing: I Have Housing Concerned About Future Housing: No Difficulty Paying Gas/Electric Bills: No Difficulty Paying for Meds: No Currently Unemployed: No Education: High School Diploma/GED Difficulty w/ Childcare or Family Care: No Living arrangements: alone Occupation/Education: unemployed Gender identity (if verbalized by the patient): Male Agree to blood products: Yes Comments At the time of my signature, I reviewed and agree with the nursing past medical, surgical, social, and family history. There is no relevant family history pertinent to the patient complaint. Exam Narrative: General: Well-developed, morbidly obese, in no apparent distress. Head: Normocephalic, atraumatic. Cardio: Regular rate and rhythm, s1 and s2 normal, no murmur appreciated. Resp: Clear to auscultation bilaterally, no rhonchi, rales, wheezing or rubs. Abdomen: Soft, pliable, bowel sounds present in all quadrants, right lower quadrant tender to palpation, no organomegly, positive right CVAT tenderness. Course Course Emergency Course: Portions of this record may have been created with voice recognition software. Level of Care: Express Care Visit Vital Signs Vital signs: Vital signs reviewed MDM - Abdominal Pain MDM Narrative Medical decision making narrative: At the time of visit patient is resting comfortably on the exam table. Patient appears to be nontoxic. Plan: Patient is unable to void while in the clinic today. Patient is complaining for
== END 2024-02-05 10:03 | disposition short-term general hospital (02) ==
LOC: EXPGOSH 09:24
PROVIDERS: Emergency Provider Nurse Practitioner Family; PCP Clinical Nurse Specialist
DX: R10.31 Right lower quadrant pain (principal); R10.9 Unspecified abdominal pain; E78.5 Hyperlipidemia, unspecified; F41.9 Anxiety disorder, unspecified; F32.A Depression, unspecified; F84.5 Asperger's syndrome
CPT/HCPCS: 99212; G0463

== ENCOUNTER 2024-02-05 10:25 | Emergency (ER) | payer OTHER, MEDICARE, SELFPAY ==
--- NOTE | ~2024-02-05 | US_ITS ---
US renal BI 02/05/2024 13:22 Procedure: Realtime transabdominal ultrasound of the kidneys and bladder. Indication: Right flank pain Comparison: CT dated 06/05/2022 and KUB dated 02/05/2024 Findings: Renal echotexture is normal bilaterally without hydronephrosis. The right kidney measures 1 3.9 cm and left kidney measures 14.1 cm. Bladder within normal limits. There is a small hyperechoic focus at the upper pole of the left kidney measuring 1.2 x 0.7 x 1 cm. No hydronephrosis. Bladder is unremarkable. Impression: 1: Small echogenic focus upper pole of the left kidney which may represent a prominent arcuate vessel or nonobstructing stone. No hydronephrosis. Reviewed, dictated and finalized at location B. Impression: 1: Small echogenic focus upper pole of the left kidney which may represent a pr ominent arcuate vessel or nonobstructing stone. No hydronephrosis.
--- NOTE | ~2024-02-05 | XR_ITS ---
XR abdomen/kub 1V 02/05/2024 11:48 Indication: Right flank pain Procedure: KUB Comparison: No prior studies for comparison. Findings: Nonobstructive bowel gas pattern. No abnormal calcifications. No acute osseous abnormality. Impression: 1: No acute abdominal abnormality. Reviewed, dictated and finalized at location B. Impression: 1: No acute abdominal abnormality.
[2024-02-05 10:33] VITALS: BP 166/99; PULSE 84; RESP 16; TEMP 36.6; O2SAT 96
--- NOTE | 2024-02-05 10:46 | ED_ITS ---
HPI - Abdominal Pain General Chief Complaint: Abdominal Pain Stated Complaint: flank/abd pain Time Seen by Provider: 02/05/24 10:30 Source: patient Mode of arrival: ambulatory Limitations: no limitations History of Present Illness HPI narrative: patient is a 39-year-old male who presents the ED with report of right flank and right lower abdominal pain. Patient reports pain began on Thursday and has been progressively worsening since then. He has been taking Aleve with some relief. Reports pain is worse with walking, certain movements, and is worse when he is urinating. He notes a fluttering sensation when he urinates. Denies dysuria or hematuria. Denies hx of kidney stones. Denies N/V, fevers. 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 Related Data Home Medications Medication Instructions Recorded Confirmed buspirone 5 mg tablet 5 mg PO DAILY Anxiety 03/26/23 01/08/24 Allergies Allergy/AdvReac Type Severity Reaction Status Date / Time Sulfa (Sulfonamide Allergy Unknown Rash Verified 01/08/24 09:02 Antibiotics) Review of Systems Review of Systems: CONSTITUTIONAL: Denies fever, chills, or sweats. GASTROINTESTINAL: See HPI. GENITOURINARY: See HPI. MUSCULOSKELETAL: see HPI. NEUROLOGIC: Denies headache, dizziness, numbness, or weakness. All systems reviewed & are unremarkable except as noted in HPI and below PMFSH Past Medical History Medical History Abdominal pain Abnormal PFTs (pulmonary function tests) ADHD (attention deficit hyperactivity disorder) Anxiety Asperger's disorder Depression History of 2019 novel coronavirus disease (COVID-19) Hyperlipidemia Iliac artery aneurysm, right Obstructive sleep apnea Seasonal allergies Supraclavicular mass Family History Family History Mother Family history of obesity Family history of diabetes mellitus in first degree relative Other Family history of cardiovascular disease Social History Social History Social History: His sleep questionnaire November 2020 indicates that he is adopted. Caffeine-tea Smoking status: Never smoker Alcohol intake: current Alcohol use details: occasionally Substance use: never Substance use type: does not use Do You Feel Safe in your Home?: Yes Lack of Transportation: No Lack of Food: Never True Current Housing: I Have Housing Concerned About Future Housing: No Difficulty Paying Gas/Electric Bills: No Difficulty Paying for Meds: No Currently Unemployed: No Education: High School Diploma/GED Difficulty w/ Childcare or Family Care: No Living arrangements: alone Occupation/Education: unemployed Gender identity (if verbalized by the patient): Male Agree to blood products: Yes Exam Narrative: GENERAL: Well appearing, morbidly obese with BMI of 68.7, non-toxic, in no acute distress. HEAD: Normocephalic, atraumatic. RESPIRATORY: Airway patent, respirations nonlabored. Clear to auscultation bilaterally, no rales, rhonchi, wheezing. CARDIOVASCULAR: Regular rate and rhythm without murmurs, rubs, or gallops. ABDOMINAL: Soft, tenderness to palpation throughout right lower abdomen, nondistended. Normoactive BS. MUSCULOSKELETAL: Moves all extremities. No gross deformities. Tenderness throughout right mid to lower back. No midline spinal tenderness. SKIN: Warm, dry, normal color. NEURO: A&O X3. Speech clear. PSYCHIATRIC: Appropriate mood and affect. Normal interaction. Course Vital Signs Vital signs: Vital Signs Temperature 97.9 F 02/05/24 10:33 Pulse Rate 84 02/05/24 10:33 Respiratory Rate 16 02/05/24 10:33 Blood Pressure 166/99 H 02/05/24 10:33 Pulse Oximetry 96 02/05/24 10:33 Oxygen Delivery Room Air 02/05/24 10:33 Temperature 97.9 F 02/05/24 10:33 Pulse Rate 85 02/05/24 14:00 Respiratory Rate 20 02/05/24 14:00 Blood Pressure 147/91 H 02/05/24 14:00 Pulse Oximetry 94 02/05/24 14:00 Oxygen Delivery Room Air 02/05/24 10:33 MDM - Abdominal Pain MDM Narrative Medical decision making narrative: Patient presented to ED from with right flank and right lower abdominal pain, onset Thursday and worsening since then. Vitals are stable upon arrival. Patient afebrile. Laboratory studies are unremarkable. No leukocytosis. Minimal anemia, consistent with previous records. CMP unremarkable. Normal LFTs. Lipase minimally elevated to 323. Patient without any epigastric tenderness. Urinalysis was ordered, but patient had difficulty providing a sample. Attempted urinary catheterization, however difficult anatomy due to morbid obesity, unable to catheterize. CT abdomen pelvis was attempted, however patient unfortunately exceeds our weight limit here. Unable to complete. Differential includes muscular strain, ureterolithiasis. Less likely SBO, appendicitis, cholelithiasis. Patient denies nausea, vomiting, diarrhea, constipation, fevers, no leukocytosis. KUB x-ray without evidence of ureterolithiasis or nephrolithiasis. Renal ultrasound was obtained and possibly showing nonobstructing left renal stone, no obvious ureterolithiasis, no hydronephrosis, bladder is unremarkable. Was eventually able to obtain urinalysis which showed 1+ leuk esterase, 11-20 white blood cells, no red blood cells. Will treat for infection given dysuria, however based on these findings together, low suspicion for ureterolithiasis at this time. Patient does report improvement of pain with supportive therapy in the ED. Discussed lab and imaging findings, overall reassuring workup thus far, however discussed limitations in providing distinct diagnosis given lack of ab ility to perform CT scan. I discussed discharge home with continued pain management/abx for UTI, close follow-up with PCP versus potentially speaking to tertiary center for further workup /CT scan capabilities. Patient would prefer to go home. He feels comfortable doing so. He states he will follow-up with his PCP for further evaluation. Advised patient to continue Tylenol/ ibuprofen as needed for pain. Will prescribe muscle relaxers for home use. Given strict return precautions. He is in agreement with plan and again feels comfortable going home. Discharged in stable condition. Vital signs stable time of D/C. Medical Records Attestation: I reviewed the patient's medical records. Lab Data Attestation: I reviewed the patient's lab results. 02/05/24 10:49 02/05/24 10:49 Labs: Lab Results 02/05/24 02/05/24 Range/Units 10:49 15:57 WBC 7.2 (4.5-10.0) K/mm3 RBC 5.06 (4.6-6.20) M/mm3 Hgb 12.9 L (14.0-18.0) g/dL Hct 41.5 L (42.0-52.0) % MCV 82.0 (80-100) fl MCH 25.5 L (26-34) pg MCHC 31.1 L (32-36) g/dl RDW 16.2 H (11.5-14.5) % Plt Count 247 (150-375) k/mm3 MPV 9.4 (7.4-10.4) fl Immature Gran % (Auto) 0.8 H (0-0.5) % Neut % (Auto) 71.8 (45.5-73.1) % Lymph % (Auto) 16.9 L (18.3-44.2) % [place] % (Auto) 7.7 (2.6-8.5) % Eos % (Auto) 2.0 (0-4.4) % Baso % (Auto) 0.8 (0.2-1.2) % Lymph # (Auto) 1.21 (0.9-3.2) K/mm3 [place] # (Auto) 0.6 (0.1-0.6) K/mm3 Eos # (Auto) 0.1 (0-0.3) K/mm3 Baso # (Auto) 0.1 (0.0-0.1) K/mm3 Abs Immat Gran (auto) 0.06 H (0.00-0.031) K/mm3 Absolute Neuts (auto) 5.1 (1.3-6.7) K/mm3 Absolute Nucleated RBC 0.000 (0.0-0.012) K/mm3 Nucleated RBC % 0.0 (0.0-0.2) % Sodium 141 (137-145) mmol/L Potassium 4.0 (3.4-5.0) mmol/L Chloride 108 H (98-107) mmol/L Carbon Dioxide 26 (22-30) mmol/L Anion Gap 7 (4-12) mmol/L BUN 12 (9-20) mg/dL Creatinine 0.70 (0.7-1.3) mg/dL Estim Creat Clear Calc 228 ml/min Estimated GFR > 60 (59 - ) Glucose 111 H (65-110) mg/dL Calcium 9.1 (8.4-10.2) mg/dL Total Bilirubin 0.5 (0.2-1.3) mg/dL AST 24 (17-59) U/L ALT 27 (6-50) U/L Alkaline Phosphatase 82 (38-126) U/L Total Protein 7.0 (6.3-8.2) g/dL Albumin 4.0 (3.5-5.1) g/dL Lipase 323 H (23-300) U/L Urine Color Yellow (Yellow) Urine Appearance Clear (Clear) Urine pH 5.5 (5.0-9.0) Ur Specific [place] 1.020 (1.001-1.035) Urine Protein 1+ H (Negative) mg/dL Urine Glucose (UA) Negative (Negative) mg/dL Urine Ketones Negative (Negative) mg/dL Ur Blood (Man) Negative (Negative) Urine Nitrate Negative (Negative) Urine Bilirubin Negative (Negative) Urine Urobilinogen 0.2 (<2.0) mg/dL Leukocyte Esterase Rfl 1+ H (Negative) IFRAH/UL Urine RBC 0-2 (0-2) /hpf Urine WBC 11-20 H (0-3) /hpf Ur Squamous Epith Cells None seen (Few) /hpf Urine Bacteria None seen /hpf Urine Casts 0-2 Urine Characteristics Clear Imaging Data Attestation: I personally reviewed and interpreted this imaging study as marissa treviño: Radiologist's impression: ITS Impressions Abdomen X-Ray 02/05/24 12:06 Impression: 1: No acute abdominal abnormality. Renal Ultrasound 02/05/24 13:23 Impression: 1: Small echogenic focus upper pole of the left kidney which may represent a prominent arcuate vessel or nonobstructing stone. No hydronephrosis. Discharge Plan Discharge Clinical Impression: Right sided abdominal pain, Right flank pain UTI (urinary tract infection) Qualifiers: Urinary tract infection type: acute cystitis Hematuria presence: without hematuria Qualified Code(s): N30.00 - Acute cystitis without hematuria Patient Disposition: Home, Self-Care Condition: Stable Instructions: Antibiotic Form, Urinary Tract Infection in Men (ED), Abdominal Pain (ED), Flank Pain (ED) Additional Instructions: Take antibiotics as prescribed for urinary tract infection. Continue Tylenol and Ibuprofen as needed for pain. You may also use ice/heat. Take muscle relaxers as needed and prescribed. Recommend taking these at night as they may cause sedation. Do not drive, operate heavy machinery, drink alcohol while on muscle relaxers as this may cause further sedation. Recommend following up with primary care doctor within the next 1 week for further evaluation. Return to an ED if you experience worsening or severe pain, persistent fevers, unable to keep down food or drink, unable to urinate, blood in urine, or any other symptoms of concern. Prescriptions: New methocarbamol 750 mg tablet 1,500 mg PO TID PRN (Reason: muscle spasm) Qty: 15 0RF cephalexin 500 mg capsule 500 mg PO Q6H 7 Days Qty: 28 0RF No Action buspirone 5 mg tablet 5 mg PO DAILY fluticasone propionate [Flonase Allergy Relief] 50 mcg/actuation spray,suspension 1 spray intranasal DAILY Qty: 16 6RF Rx Instructions: administer into each nostril albuterol sulfate 90 mcg/actuation HFA aerosol inhaler 1 inh inhalation Q4H PRN (Reason: shortness of breath or wheezing) Qty: 6.7 4RF fluconazole 150 mg tablet 150 mg PO DAILY Qty: 1 1RF Rx Instructions: Repeat in 72 hours if needed. Contrave 8-90 mg tablet extended release 2 tablet PO BID Qty: 360 0RF ferrous sulfate 325 mg (65 mg iron) tablet 325 mg PO BID Qty: 30 2RF Follow-up/Referrals: Carlie Hines CASE CONSULTANT-C [Primary Care Provider] - Time of Disposition: 16:53
[2024-02-05] MEDS: ONDANSETRON INJ 4 MG/2 ML VIAL IV PUSH (10:58)
[2024-02-05] MEDS: MORPHINE SULFATE (*CRX) 4 MG/ML INJ IV PUSH (10:58)
[2024-02-05] MEDS: SODIUM CHLORIDE 0.9% IV 1,000 ML 999 ML IV CONT (10:58)
[2024-02-05 11:13] LABS: Alanine Aminotransferase 27 U/L (6-50); Alkaline Phosphatase 82 U/L (38-126); Anion Gap 7 mmol/L (4-12); Aspartate Amino Transferase 24 U/L (17-59); Bilirubin,Total 0.5 mg/dL (0.2-1.3); Blood Urea Nitrogen 12 mg/dL (9-20); Calcium 9.1 mg/dL (8.4-10.2); Carbon Dioxide 26 mmol/L (22-30); Chloride 108 mmol/L (98-107); Estimated CRCL calculation 228 ml/min; Estimated Glomerular Filt Rate > 60; Glucose 111 mg/dL (65-110); Lipase 323 U/L (23-300); Sodium 141 mmol/L (137-145)
[2024-02-05 11:14] LABS: Basophils Absolute Auto 0.1 K/mm3 (0.0-0.1); Basophils Percent Auto 0.8 % (0.2-1.2); Eosinophils Absolute Auto 0.1 K/mm3 (0-0.3); Hematocrit 41.5 % (42.0-52.0); Hemoglobin 12.9 g/dL (14.0-18.0); Immature Granulocyte Absolute 0.06 K/mm3 (0.00-0.031); Immature Granulocyte Percent A 0.8 % (0-0.5); Lymphocytes Absolute Auto 1.21 K/mm3 (0.9-3.2); Lymphocytes Percent Auto 16.9 % (18.3-44.2); Mean Corpuscular HGB Conc 31.1 g/dl (32-36); Mean Corpuscular Hemoglobin 25.5 pg (26-34); Mean Platelet Volume 9.4 fl (7.4-10.4); Monocytes Absolute Auto 0.6 K/mm3 (0.1-0.6); Monocytes Percent Auto 7.7 % (2.6-8.5); Neutrophils Absolute Auto 5.1 K/mm3 (1.3-6.7); Neutrophils Percent Auto 71.8 % (45.5-73.1); Platelet Count Result 247 k/mm3 (150-375); Red Blood Count 5.06 M/mm3 (4.6-6.20); Red Cell Distribution Width 16.2 % (11.5-14.5); White Blood Count 7.2 K/mm3 (4.5-10.0)
[2024-02-05 14:00] VITALS: BP 147/91; PULSE 85; RESP 20; O2SAT 94
[2024-02-05] MEDS: KETOROLAC 30 MG/ML VIAL (*BKC) IV PUSH (15:45)
[2024-02-05] MEDS: CYCLOBENZAPRINE HCL 10 MG TABLET PO (15:46)
[2024-02-05 16:08] LABS: Appearance Urine Clear (Clear); Bacteria Urine None Seen /hpf; Bilirubin Urine Negative (Negative); Blood Urine Negative (Negative); Color Urine Yellow (Yellow); Glucose Urine UA Negative (Negative); Ketones Urine Negative (Negative); Leukocyte Esterase Ur 1+ LEU/UL (Negative); Nitrate Urine Negative (Negative); Non Pathogenic Casts 0-2; Protein Urine 1+ mg/dL (Negative); RBC Urine 0-2 /hpf (0-2); Squamous Epithelial Cell Urine None Seen /hpf (Few); Urobilinogen Urine 0.2 mg/dL (<2.0); pH Urine 5.5 (5.0-9.0)
[2024-02-05 16:12] LABS: Add Urine Microscopic? YES
== END 2024-02-05 17:26 | disposition home or self-care (01) ==
PROVIDERS: Emergency Provider Physician Assistant; PCP Clinical Nurse Specialist
DX: N30.00 Acute cystitis without hematuria (principal); R10.31 Right lower quadrant pain; E78.5 Hyperlipidemia, unspecified; E66.01 Morbid (severe) obesity due to excess calories; Z68.44 Body mass index [BMI] 60.0-69.9, adult; G47.33 Obstructive sleep apnea (adult) (pediatric); F90.9 Attention-deficit hyperactivity disorder, unspecified type; F41.9 Anxiety disorder, unspecified; F84.5 Asperger's syndrome; F32.A Depression, unspecified; Z86.16 Personal history of COVID-19; R93.422 Abnormal radiologic findings on diagnostic imaging of left kidney
CPT/HCPCS: 36415; 51702; 74018; 76775; 80053; 81001; 83690; 85025; 87086; 96361; 96374; 96375; 99284; A9270; J1885; J2270; J2405; J7030

== ENCOUNTER 2024-04-23 07:51 | Outpatient (CLI) | payer OTHER, MEDICARE, SELFPAY ==
[2024-04-23 08:31] LABS: Cholesterol 134 mg/dL (0-200); HDL Direct 29 mg/dL; Triglycerides 160 mg/dL (<150)
[2024-04-23 08:42] LABS: LDL Cholesterol Direct 74 mg/dL
== END 2024-04-23 07:52 | disposition home or self-care (01) ==
PROVIDERS: PCP Clinical Nurse Specialist; Visit Provider Nurse Practitioner
DX: E66.01 Morbid (severe) obesity due to excess calories (principal); R68.89 Other general symptoms and signs; Z68.44 Body mass index [BMI] 60.0-69.9, adult; R53.83 Other fatigue
CPT/HCPCS: 36415; 80061; 84443

== ENCOUNTER 2024-05-18 14:54 | Emergency (ER) | payer OTHER, MEDICARE, SELFPAY ==
[2024-05-18 15:09] VITALS: BP 117/82; PULSE 73; RESP 16; TEMP 36.5; O2SAT 96
[2024-05-18 15:14] VITALS: BP 117/82; PULSE 73; RESP 16; TEMP 36.5; O2SAT 96
--- NOTE | 2024-05-18 15:27 | ED.URI ---
HPI - URI/Sore Throat General Chief Complaint: Upper Respiratory Infection Stated Complaint: COUGH/SINUS CONGESTION Time Seen by Provider: 05/18/24 15:17 Source: patient and RN notes reviewed Mode of arrival: ambulatory Limitations: no limitations History of Present Illness HPI Narrative: Patient presents today with a 2 week history of productive cough, chest congestion, nasal congestion, shortness of breath with exertion. Denies fever, sore throat. Patient has tried DayQuil, NyQuil, Aleve, allergy medicine, Mucinex, and Flonase with varying relief. Denies history of asthma or COPD. He is a nonsmoker. Related Data Allergies Allergy/AdvReac Type Severity Reaction Status Date / Time Sulfa (Sulfonamide Allergy Unknown Rash Verified 04/26/24 09:38 Antibiotics) Review of Systems Review of Systems: CONSTITUTIONAL: Denies body aches, fever, chills, or sweats. EYES: Denies visual changes, redness, or discharge. ENT: Denies rhinorrhea, sore throat, or otalgia.+ congestion CARDIOVASCULAR: Denies chest pain, palpitations, or edema. RESPIRATORY: + cough, shortness of breath with exertion, chest congestion GASTROINTESTINAL: Denies abdominal pain, nausea, vomiting, or diarrhea. GENITOURINARY: Denies dysuria or hematuria. SKIN: Denies rash, itching, or wounds. MUSCULOSKELETAL: Denies back pain, joint pain, or myalgia. NEUROLOGIC: Denies headache, numbness, tingling, or weakness. PSYCH: Denies depression or anxiety. [facility] Past Medical History Medical History Abdominal pain Abnormal PFTs (pulmonary function tests) ADHD (attention deficit hyperactivity disorder) Anxiety Asperger's disorder Depression History of 2019 novel coronavirus disease (COVID-19) Hyperlipidemia Iliac artery aneurysm, right Obstructive sleep apnea Seasonal allergies Supraclavicular mass Family History Family History Mother Family history of obesity Family history of diabetes mellitus in first degree relative Other Family history of cardiovascular disease Social History Social History Social History: His sleep questionnaire November 2020 indicates that he is adopted. Caffeine-tea Smoking status: Never smoker Alcohol intake: current Alcohol use details: occasionally Substance use: never Substance use type: does not use Do You Feel Safe in your Home?: Yes Lack of Transportation: No Lack of Food: Never True Current Housing: I Have Housing Concerned About Future Housing: No Difficulty Paying Gas/Electric Bills: No Difficulty Paying for Meds: No Currently Unemployed: No Education: High School Diploma/GED Difficulty w/ Childcare or Family Care: No Living arrangements: alone Occupation/Education: unemployed Gender identity (if verbalized by the patient): Male Agree to blood products: Yes Comments At time of signature, I have reviewed and agree with nursing past medical, surgical, social and family history unless otherwise noted. Please see nursing chart for further information. There is no relevant family history pertinent to the presenting complaint Exam Narrative: GENERAL: Well-appearing, well-nourished, and in no acute distress. HEAD: Normocephalic, atraumatic. EYES: EOMI. No redness or drainage. Conjunctivae normal. ENT: Mucous membranes pink and moist. Nares congested. No rhinorrhea. TMs normal bilaterally. Throat normal. Uvula midline. NECK: Normal AROM. Supple. No lymphadenopathy. CHEST: No respiratory distress. Clear to auscultation. HEART: Regular rate and rhythm. No murmur appreciated. EXTREMITIES: Normal range of motion. No edema. SKIN: Warm, dry, no rash. Capillary refill normal. Normal skin turgor. NEURO: No focal deficits. Alert and oriented x3. Gait steady. PSYCH: Normal affect. No signs of dep
== END 2024-05-18 15:35 | disposition home or self-care (01) ==
PROVIDERS: Emergency Provider Nurse Practitioner; PCP Clinical Nurse Specialist
DX: J40 Bronchitis, not specified as acute or chronic (principal); J01.90 Acute sinusitis, unspecified; E78.5 Hyperlipidemia, unspecified
CPT/HCPCS: 99213; G0463

== ENCOUNTER 2024-12-30 13:53 | Emergency (ER) | payer OTHER, MEDICARE, SELFPAY ==
[2024-12-30 14:03] VITALS: BP 123/77; PULSE 78; RESP 20; TEMP 36.2; O2SAT 97
--- NOTE | 2024-12-30 14:41 | ED_ITS ---
HPI - General Adult General Chief complaint: Unspecified Stated complaint: CHRONIC PAIN Time Seen by Provider: 12/30/24 14:41 Source: patient, RN notes reviewed and old records reviewed Mode of arrival: ambulatory Limitations: no limitations History of Present Illness HPI narrative: 39 year old male presents to [facility] with complaints of chronic pain to his legs and back and thought he had appointment upstairs today at 2pm and they told him they have no one to see him and told him to come down here. Patient reports that he has lost 60 lbs on Semaglutide and does follow with Dr Singh at [facility] in [place] for rupal loss. Patient reports that he had really bad day at work on , had a panic attack also and he is really aggravated with upstairs office today Patient reports that it feels like pins and needles in his lower extremities, patient is morbidly obese. Patient reports that he takes Aleve like 'crack for his pain. MD complaint: chronic pain to legs and back Onset (ago): year(s) (2) Location: back (lower back), left, right and lower extremity Severity scale (1-10): 10 Treatments prior to arrival: other (takes Aleve.) Related Data Home Medications ?Medication ?Instructions ?Recorded ?Confirmed ?Last Taken ?Type cholecalciferol (vitamin D3) 125 125 mcg PO DAILY 08/08/24 08/08/24 Unknown History mcg (5,000 unit) capsule mecobalamin (vitamin B12) 10,000 mcg IM 08/08/24 08/08/24 Unknown History mcg solution for injection metoprolol tartrate 25 mg tablet 25 mg PO BID 08/08/24 08/08/24 Unknown History Allergies Allergy/AdvReac Type Severity Reaction Status Date / Time Sulfa (Sulfonamide Allergy Unknown Rash Verified 12/30/24 14:13 Antibiotics) Review of Systems Review of Systems: CONSTITUTIONAL: Denies fever, chills, or sweats. EYES: Denies visual changes, redness, or discharge. ENT: Denies rhinorrhea, congestion, sore throat, or otalgia. CARDIOVASCULAR: Denies chest pain, palpitations, or edema. RESPIRATORY: Denies cough or dyspnea. GASTROINTESTINAL: Denies abdominal pain, nausea, vomiting, or diarrhea. GENITOURINARY: Denies dysuria or hematuria. SKIN: Denies rash or itching. MUSCULOSKELETAL: Reports chronic lower back pain, and chronic pain to his lower extremities, or myalgia. NEUROLOGIC: Denies headache, numbness, or weakness. PSYCHIATRIC: Reports anxiety or depression. All systems reviewed & are unremarkable except as noted in HPI and below PMFSH Past Medical History Medical History Hypogonadotropic hypogonadism in male Abdominal pain Obstructive sleep apnea Supraclavicular mass Iliac artery aneurysm, right Abnormal PFTs (pulmonary function tests) History of 2019 novel coronavirus disease (COVID-19) Seasonal allergies Depression ADHD (attention deficit hyperactivity disorder) Asperger's disorder Anxiety Hyperlipidemia Family History Family History Mother Family history of obesity Family history of diabetes mellitus in first degree relative Other Family history of cardiovascular disease Social History Social History Social History: His sleep questionnaire November 2020 indicates that he is adopted. Caffeine-tea Smoking status: Never smoker Alcohol intake: current Alcohol use details: occasionally Substance use: never Substance use type: does not use Do You Feel Safe in your Home?: Yes Lack of Transportation: No Lack of Food: Never True Current Housing: I Have Housing Concerned About Future Housing: No Difficulty Paying Gas/Electric Bills: No Difficulty Paying for Meds: No Currently Unemployed: No Education: High School Diploma/GED Difficulty w/ Childcare or Family Care: No Living arrangements: alone Occupation/Education: unemployed Gender identity (if verbalized by the patient): Male Agree to blood products: Yes Comments At time of signature, agree with nursing past medical, surgical, social and family history. There is no relevant family history pertinent to the presenting complaint Exam Narrative: GENERAL: Well-appearing, well-nourished,morbidly obese and in no acute distress. HEAD: Normocephalic, atraumatic. EYES: PERRLA and EOMI. ENT: Nares clear, no rhinorrhea or epistaxis. Mucous membranes moist.TM's normal throat pink with no swelling NECK: Supple. no lymphadenopathy CHEST: Clear to auscultation. No respiratory distress.SAO2 97% on room air HEART: Regular rate and rhythm. No murmur heard. Normal peripheral pulses. ABDOMEN: Soft, nontender, nondistended, normal active bowel sounds. EXTREMITIES: Normal range of motion.Trace pedal edema. reports chronic pain to bilateral lower extremities described as pins and needles and chronic aching pain to back nonradiating. Patient is morbidly obese has been on Semaglutide for weight loss and has lost 60 pounds. Patient has palpable pedal pulses of adequate quality. SKIN: Warm, dry, no rash. NEURO: No focal deficits. Alert and oriented x3. Course Course Emergency Course: Patient is aware of diagnosis, understands and agrees to treatment plan.? Anticipatory guidance given.? Patient agrees to follow-up as directed and is aware of reasons to seek care at the emergency department. Portions of this record may have been created with voice recognition software Level of Care: Express Care Visit Vital Signs Vital signs: Vital Signs Temperature 36.2 C L 12/30/24 14:03 Pulse Rate 78 12/30/24 14:03 Respiratory Rate 20 12/30/24 14:03 Blood Pressure 123/77 12/30/24 14:03 Pulse Oximetry 97 12/30/24 14:03 Temperature 36.2 C L 12/30/24 14:03 Pulse Rate 78 12/30/24 14:03 Respiratory Rate 20 12/30/24 14:03 Blood Pressure 123/77 12/30/24 14:03 Pulse Oximetry 97 12/30/24 14:03 Reviewed Medical Decision Making MDM Narrative Medical decision making narrative: Exam findings and imaging show no acute concerns or changes; patient is non- toxic appearing and is in no distress.? Patient is appropriate for outpatient treatment and follow-up Differential Diagnosis Differential Diagnosis: chronic back pain, chronic leg pain, morbid obesity Medical Records Medical records reviewed: Yes I reviewed the external patient's medical records. Vital Signs Vital Signs: Vital Signs Temperature 36.2 C L 12/30/24 14:03 Pulse Rate 78 12/30/24 14:03 Respiratory Rate 20 12/30/24 14:03 Blood Pressure 123/77 12/30/24 14:03 Pulse Oximetry 97 12/30/24 14:03 Temperature 36.2 C L 12/30/24 14:03 Pulse Rate 78 12/30/24 14:03 Respiratory Rate 20 12/30/24 14:03 Blood Pressure 123/77 12/30/24 14:03 Pulse Oximetry 97 12/30/24 14:03 reviewed Critical Care Time Critical Care Time Critical Care Time: No Discharge Plan Discharge Clinical Impression: Chronic pain of lower extremity, bilateral, Chronic lower back pain, Morbid obesity Patient Disposition: Home Condition: Stable Instructions: Chronic Pain (ED) Additional Instructions: Ice and heat to the area for 20-30 minutes Gentle stretching exercises Gentle massage Caution with lifting, bending, stooping, twisting Avoid pushing, pulling take muscle relaxants as directed--caution drowsiness and no driving or alcohol take only at bedtime Anti-inflammatory medicine as directed--take with food alternate Aleve with Tylenol arthritis He may take the muscle relaxant and anti-inflammatory at the same time Follow-up with your PCP if not improving in 5-7 days If your symptoms persist, change or worsen significantly before you can contact your personal physician then please, without delay, go to the emergency department for further evaluation. Follow-up with PCP in 7-10 days or sooner if needed Patient Language: Spanish Prescriptions: New cyclobenzaprine 5 mg tablet 5 mg PO HS Qty: 20 0RF No Action prednisone 50 mg tablet 50 mg PO DAILY 5 Days Qty: 5 0RF fluticasone propionate [Flonase Allergy Relief] 50 mcg/actuation spray,suspension 1 spray intranasal DAILY Qty: 16 6RF Rx Instructions: administer into each nostril metoprolol tartrate 25 mg tablet 25 mg PO BID cholecalciferol (vitamin D3) 125 mcg (5,000 unit) capsule 125 mcg PO DAILY mecobalamin (vitamin B12) 10,000 mcg recon soln IM ferrous sulfate 325 mg (65 mg iron) tablet 325 mg PO BID Qty: 30 2RF albuterol sulfate 90 mcg/actuation HFA aerosol inhaler 1 inh inhalation Q4H PRN (Reason: shortness of breath or wheezing) Qty: 6.7 4RF nystatin 100,000 unit/gram powder 1 applic topical TID Qty: 60 2RF Follow-up/Referrals: Carlie Hines FNP-C [Primary Care Provider] - Time of Disposition: 15:04 Quality [place] Coma Scale Eyes: Open Verbal: Oriented and Alert Motor: Follows Commands [place] Coma Total Score: 15
== END 2024-12-30 15:04 | disposition home or self-care (01) ==
PROVIDERS: Emergency Provider Registered Nurse; PCP Clinical Nurse Specialist
DX: G89.29 Other chronic pain (principal); M79.662 Pain in left lower leg; M79.661 Pain in right lower leg; M54.50 Low back pain, unspecified; E66.01 Morbid (severe) obesity due to excess calories; Z68.45 Body mass index [BMI] 70 or greater, adult; F84.5 Asperger's syndrome; E78.5 Hyperlipidemia, unspecified; I72.3 Aneurysm of iliac artery
CPT/HCPCS: 99213; G0463

== ENCOUNTER 2025-01-05 15:55 | Outpatient (CLI) | payer OTHER, MEDICARE, SELFPAY ==
--- NOTE | ~2025-01-05 | XR_ITS ---
Lumbosacral Spine: AP and lateral views Clinical History: Pain Findings: The normal lordotic curve is maintained. No fracture or subluxation. There is moderate dege nerative spurring throughout the lumbar spine. There is advanced facet arthropathy throughout the lum bar spine.. The sacroiliac joints are normally outlined. Impression: Moderate to advanced degenerative spondylitic changes, as above. Reviewed, dictated and finalized at location M. Impression: Moderate to advanced degenerative spondylitic changes, as above.
== END 2025-01-05 15:56 | disposition home or self-care (01) ==
LOC: GOSHIMG 15:57
PROVIDERS: PCP Internal Medicine; Visit Provider Clinical Nurse Specialist
DX: M47.26 Other spondylosis with radiculopathy, lumbar region (principal)
CPT/HCPCS: 72100